=== PATIENT | male | born 1980 | race Caucasian/White ===

== ENCOUNTER 2025-03-29 21:32 | Emergency (ER) | payer SELFPAY ==
--- NOTE | 2025-03-29 21:58 | ED ---
Upper Extremity HPI - General Source: patient, RN notes reviewed Mode of arrival: ambulatory Limitations: no limitations - History of Present Illness MD Complaint: Injury to:: right, shoulder Onset/Timin -: hour(s) Other Extremity Injury: Shoulder: Right Other Injuries: none Place: outdoors Severity scale (1-10): 9 Improves With: immobilization, rest Worsens With: movement of extremity Context: fall, direct blow Associated Symptoms: heard/felt popping sensat Treatments Prior to Arrival: cold therapy <Mike Johnson - Last Filed: 03/29/25 23:04> <Vin Kincaid - Last Filed: 03/30/25 02:29> - General Chief Complaint: Extremity Injury, Upper Stated Complaint: Right shoulder injury Time Seen by Provider: 03/29/25 21:50 - History of Present Illness Initial Comments: This is a 44-year-old male with history of EtOH abuse presenting from [place] for right shoulder injury/pain (06/24) occurring earlier today. Patient states he was diving for a volleyball when he heard a "pop" and "crack" in his right shoulder. Patient states he began playing volleyball again after the incident with worsening pain before being sent to ER for further evaluation. Patient states he is unable to abduct his arm from his body due to pain. Denies striking head, headache, loss of consciousness, neck pain or any other significant injuries. (Mike Johnson) - Related Data Allergies Allergy/AdvReac Type Severity Reaction Status Date / Time No Known Allergies Allergy Verified 03/29/25 21:40 Review of Systems ROS Other: All systems not noted in ROS Statement are negative. <Mike Johnson - Last Filed: 03/29/25 23:04> ROS Other: All systems not noted in ROS Statement are negative. <Vin Kincaid - Last Filed: 03/30/25 02:29> ROS Statement: Those systems with pertinent positive or pertinent negative responses have been documented in the HPI. Past Medical History Past Medical History: Diabetes Mellitus, Hypertension History of Any Multi-Drug Resistant Organisms: None Reported Past Surgical History: Appendectomy, Tonsillectomy Past Psychological History: No Psychological Hx Reported Smoking Status: Current every day smoker Past Alcohol Use History: Abuse Past Drug Use History: None Reported <Mike Johnson - Last Filed: 03/29/25 23:04> General Exam Limitations: no limitations General appearance: alert, in no apparent distress Head exam: Present: atraumatic, normocephalic, normal inspection Eye exam: Present: normal appearance, PERRL, EOMI. Absent: scleral icterus, conjunctival injection, periorbital swelling ENT exam: Present: normal exam, mucous membranes moist Neck exam: Present: normal inspection. Absent: tenderness, meningismus, lymphadenopathy Respiratory exam: Present: normal lung sounds bilaterally. Absent: respiratory distress, wheezes, rales, rhonchi, stridor Cardiovascular Exam: Present: regular rate, normal rhythm, normal heart sounds. Absent: systolic murmur, diastolic murmur, rubs, gallop, clicks GI/Abdominal exam: Present: soft, normal bowel sounds. Absent: distended, tenderness, guarding, rebound, rigid Extremities exam: Present: tenderness (Positive right AC joint TTP.), normal capillary refill, other (RUE distal neurovascular and motor function intact. Radial pulse +2, capillary refill less than 2 seconds. Positive apprehension, Joseph, belly press. Patient unable to perform empty can or liftoff test.). Absent: full ROM (Patient holding right arm close to torso, endorsing worsening pain with any attempted abduction.), pedal edema, joint swelling, calf tenderness Back exam: Present: normal inspection Neurological exam: Present: alert, oriented X3, CN II-XII intact Psychiatric exam: Present: normal affect, normal mood Skin exam: Present: warm, dry, intact, normal color. Absent: rash <Mike Johnson - Last Filed: 03/29/25 23:04> Course Vital Signs 03/29/25 21:36 Temperature 97.8 F Pulse Rate 93 Respiratory 18 Rate Blood Pressure 188/109 O2 Sat by Pulse 99 Oximetry Medical Decision Making <Mike Johnson - Last Filed: 03/29/25 23:04> - Medical Decision Making Was pt. sent in by a medical professional or institution ([facility], [facility], urgent care, hospital, or fdc...) When possible be specific @ -[place] Did you speak to anyone other than the patient for history (EMS, parent, family, police, friend...)? What history was obtained from this source @ -[No] Did you review nursing and triage notes (agree or disagree)? Why? @ -[I reviewed and agree with nursing and triage notes] Were old charts reviewed (outside hosp., previous admission, EMS record, old EKG, old radiological studies, urgent care reports/EKG's, fdc records)? Report findings @ -[No old charts were reviewed] Differential Diagnosis (chest pain, altered mental status, abdominal pain women, abdominal pain men, vaginal bleeding, weakness, fever, dyspnea, syncope, headache, dizziness, GI bleed, back pain, seizure, CVA, palpatations, mental health, musculoskeletal)? @ -Differential Musculoskeletal Muscular strain, contusion, ligament sprain, fracture, arthritis, septic a rthritis, bursitis, cellulitis, muscle spasm, nerve compression, DVT, arterial occlusion, herpes zoster, electrolyte abnormality, tumor.... This is not meant to be in all inclusive list EKG interpreted by me (3pts min.). @ -Not done X-rays interpreted by me (1pt min.). @ -Right shoulder x-ray results pending CT interpreted by me (1pt min.). @ -[None done] U/S interpreted by me (1pt. min.). @ -[None done] What testing was considered but not performed or refused? (CT, X-rays, U/S, labs)? Why? @ -[None] What meds were considered but not given or refused? Why? @ -[None] Did you discuss the management of the patient with other professionals (professionals i.e. , PA, [employer], lab, RT, psych nurse, social sciences department chair, sew out operator, teacher, loss prevention officer, registered nurse hh case manager)? Give summary @ -[No] Was smoking cessation discussed for >3mins.? @ -[No] Was critical care preformed (if so, how long)? @ -[No] Were there social determinants of health that impacted care today? How? (Homelessness, low income, unemployed, alcoholism, drug addiction, transportation, low edu. Level, literacy, decrease access to med. care, assisted, rehab)? @ -[No] Was there de-escalation of care discussed even if they declined (Discuss DNR or withdrawal of care, Hospice)? DNR status @ -[No] What co-morbidities impacted this encounter? (DM, HTN, Smoking, COPD, CAD, Cancer, CVA, ARF, Chemo, Hep., AIDS, mental health diagnosis, sleep apnea, morbid obesity)? @ -[None] Was patient admitted / discharged? Hospital course, mention meds given and route, prescriptions, significant lab abnormalities, going to OR and other pertinent info. @ -Patient provided p.o. Tylenol, IM Toradol and lidocaine patch for shoulder pain. Patient provided IM morphine for ongoing severe pain despite initial medication provided. Patient care handed off to Jillian Kincaid PA-C with radiologist reading of x-ray pending. Undiagnosed new problem with uncertain prognosis? @ -[No] Drug Therapy requiring intensive monitoring for toxicity (Heparin, Nitro, Insu radha, Cardizem)? @ -[No] Were any procedures done? @ -[No] Diagnosis/symptom? @ -[default] Acute, or Chronic, or Acute on Chronic? @ -Acute Uncomplicated (without systemic symptoms) or Complicated (systemic symptoms)? @ -Uncomplicated Side effects of treatment? @ -[No] Exacerbation, Progression, or Severe Exacerbation? @ -[No] Poses a threat to life or bodily function? How? (Chest pain, [place], [place], pneumonia, PE, COPD, DKA, ARF, appy, cholecystitis, CVA, Diverticulitis, Homicidal, Suicidal, threat to staff... and all critical care pts) @ -[No] (Mike Johnson) Disposition <Mike Johnson - Last Filed: 03/29/25 23:04> Is patient prescribed a controlled substance at d/c from ED?: No Time of Disposition: 02:29 <Vin Kincaid - Last Filed: 03/30/25 02:29> Clinical Impression: Shoulder sprain Disposition: HOME SELF-CARE Condition: Good Instructions (If sedation given, give patient instructions): Shoulder Sprain (ED) Additional Instructions: Follow-up with orthopedics. Report back to ER with any new or worsening symptoms. Motrin Tylenol as needed for pain control. Referrals: None,Stated [Primary Care Provider] - 1-2 days Sage Olvera MD [STAFF PHYSICIAN] - 1-2 days
[2025-03-29] MEDS: KETOROLAC 15 MG/ML 1 ML VIAL IM STA (22:24)
[2025-03-29] MEDS: LIDOCAINE 4% PATCH TOPICAL ONE (22:25)
[2025-03-29] MEDS: ACETAMINOPHEN TAB 500 MG TAB PO STA (22:25)
[2025-03-29] MEDS: MORPHINE SULFATE 4 MG/ML SYRINGE IM STA (23:18)
--- NOTE | 2025-03-30 02:12 | XR ---
EXAM: XR Right Shoulder Complete, 2 or More Views CLINICAL HISTORY: ITS.REASON XR Reason: Severe right shoulder pain/injury TECHNIQUE: Two or more views of the right shoulder. COMPARISON: No relevant prior studies available. FINDINGS: Bones/joints: No acute fracture. No dislocation. Soft tissues: Unremarkable. IMPRESSION: No acute osseous abnormalities.
[2025-03-30] MEDS: HYDROmorphone 1 MG/ML 1 ML SYRINGE IM STA (02:43)
[2025-03-30 02:53] VITALS: BP 171/102; PULSE 84; RESP 17; TEMP 98
== END 2025-03-30 02:52 | disposition home or self-care (01) ==
LOC: EC 21:32
DX: S43.401A Unspecified sprain of right shoulder joint, initial encounter (principal); F17.200 Nicotine dependence, unspecified, uncomplicated; X50.9XXA Other and unspecified overexertion or strenuous movements or postures, initial encounter; Y93.68 Activity, volleyball (beach) (court)
CPT/HCPCS: 73030; 99284; 96372 ×3; J2270; J1885